=== PATIENT | female | born 1960 | race Hispanic/Latino ===

== ENCOUNTER → 2021-05-14 | Outpatient (CLI) | payer OTHER, MEDICARE | END | disposition home or self-care (01) | LOC: RAH 10:33 | PROVIDERS: ATTEND Internal Medicine Gastroenterology | DX: R13.12 Dysphagia, oropharyngeal phase (principal); R63.30 Feeding difficulties, unspecified | CPT/HCPCS: 74230; 92611 ==

== ENCOUNTER 2021-06-24 12:02 | Emergency (ER) | payer OTHER, MEDICARE ==
[~2021-06-24] VITALS: Ht 157.5 cm; Wt 69.9 kg
[2021-06-24 12:11] VITALS: BP 121/70
[2021-06-24] MEDS ORDERED: MAGIC240 MM (13:44)
[2021-06-24] MEDS ORDERED: DIPH25 PO (13:44)
[2021-06-24] MEDS ORDERED: FAMO20TA8 PO (13:44)
[2021-06-24] MEDS ORDERED: DEXAMETHASONE SOD PHOSPHATE 4 MG/ML 1ML VIAL IM SCH (14:00)
[2021-06-24] MEDS ORDERED: DIPHENHYDRAMINE HCL 25 MG CAPSULE PO ONE (14:00)
[2021-06-24] MEDS ORDERED: LIDOCAINE HCL 2% VISCOUS 15 ML UDCUP PO ONE (14:00)
[2021-06-24] MEDS ORDERED: FAMOTIDINE 20MG TAB PO ONE (14:00)
== END 2021-06-24 14:20 | disposition home or self-care (01) ==
LOC: EDH 12:02
DX: T78.49XA Other allergy, initial encounter (principal); K13.79 Other lesions of oral mucosa; E11.9 Type 2 diabetes mellitus without complications; E78.00 Pure hypercholesterolemia, unspecified; I10 Essential (primary) hypertension; M19.90 Unspecified osteoarthritis, unspecified site; Z79.52 Long term (current) use of systemic steroids; Z79.899 Other long term (current) drug therapy; Z90.49 Acquired absence of other specified parts of digestive tract; X58.XXXA Exposure to other specified factors, initial encounter
CPT/HCPCS: 96372; 99284; J1100; Q0163

== ENCOUNTER → 2021-12-31 | Outpatient (CLI) | payer OTHER, MEDICARE ==
[~2021-12-31] MED LIST: DIPH25 PO; FAMO20TA8 PO; MAGIC240 MM
== END | disposition home or self-care (01) ==
LOC: SHCH 12:57
PROVIDERS: ATTEND Internal Medicine Cardiovascular Disease
DX: I87.2 Venous insufficiency (chronic) (peripheral) (principal)
CPT/HCPCS: 93970

== ENCOUNTER → 2023-01-21 | Outpatient (CLI) | payer OTHER, MEDICARE ==
[~2023-01-21] MED LIST changes: +DIPH-1242 PO; -DIPH25 PO
== END | disposition home or self-care (01) ==
LOC: SHCH 07:38
PROVIDERS: ATTEND Internal Medicine Cardiovascular Disease
DX: I87.2 Venous insufficiency (chronic) (peripheral) (principal); I73.9 Peripheral vascular disease, unspecified
CPT/HCPCS: 93925; 93970

== ENCOUNTER → 2023-05-13 | Outpatient (CLI) | payer OTHER, MEDICARE ==
[~2023-05-13] MED LIST changes: +IOHEXOL-350 75 ML VIAL IV ONE
== END | disposition home or self-care (01) ==
LOC: RAH 10:21
PROVIDERS: ATTEND Surgery
DX: Z48.89 Encounter for other specified surgical aftercare (principal); Z90.49 Acquired absence of other specified parts of digestive tract
CPT/HCPCS: 74177; Q9967

== ENCOUNTER → 2024-01-24 | Outpatient (CLI) | payer OTHER, MEDICARE ==
[~2024-01-24] MED LIST changes: +IOHEXOL 350 MG/ML 100ML INFUS..BTL IV ONE; -IOHEXOL-350 75 ML VIAL IV ONE
== END | disposition home or self-care (01) ==
LOC: RAH 08:12
PROVIDERS: ATTEND Family Medicine
DX: N12 Tubulo-interstitial nephritis, not specified as acute or chronic (principal); S31.109D Unspecified open wound of abdominal wall, unspecified quadrant without penetration into peritoneal cavity, subsequent encounter; K42.9 Umbilical hernia without obstruction or gangrene; I70.90 Unspecified atherosclerosis; M47.815 Spondylosis without myelopathy or radiculopathy, thoracolumbar region; Z90.49 Acquired absence of other specified parts of digestive tract; Z98.890 Other specified postprocedural states; X58.XXXD Exposure to other specified factors, subsequent encounter
CPT/HCPCS: 74177; Q9967

== ENCOUNTER → 2024-07-18 | Outpatient (CLI) | payer OTHER, MEDICARE ==
--- NOTE | 2024-07-18 11:47 | HMCIMG ---
CT ABDOMEN WITH CONTRAST. CT PELVIS WITH CONTRAST INDICATION: Incisional hernia without obstruction or gangrene TECHNIQUE: Routine transaxial images using 5 mm slice thickness were obtained after the intravenous infusion of 100 mL of Omnipaque 350 without adverse effects. Oral contrast was not administered. Rectal contrast was not administered. Coronal and sagittal reformatted images acquired for interpretation. CT was performed with one or more of the following dose reduction techniques: Automated exposure control, adjustment of the mA and/or kV according to patient size, or use of iterative reconstruction technique. COMPARISON: None FINDINGS: ABDOMEN: Heart size is normal. Visible lung bases are clear. The liver is normal in size and smooth in contour without lesions or biliary duct dilation. The spleen is normal in size without lesions. The gallbladder is surgically absent. The pancreas appears normal without pancreatic duct dilation. The adrenal glands appear normal. Both kidneys appear unremarkable. Cortical nephrograms are symmetric and normal in appearance bilaterally. No evidence for intra-abdominal free air or organized fluid collection. No retrocrural, intraabdominal, or retroperitoneal lymphadenopathy identified. No aortic aneurysmal dilation or dissection identified. Right iliac vein stent in place. Severe rectus diastases, without hernia. PELVIS: No evidence for free air or organized pelvic fluid collection. No significant pelvic adenopathy detected. Extensive stool burden. 4.0 cm air and fluid-filled diverticulum arising superiorly off the duodenal sweep. Terminal ileum appears normal. Bowel anastomosis sites appear normal. The uterus and appendix are surgically absent. Multiple pelvic phleboliths. The urinary bladder appears unremarkable. Streak artifact from L4-L5 fusion hardware.. IMPRESSION: 1. Severe rectus diastases, without hernia. 2. Constipation, without evidence for any acute intra-abdominal or pelvic process. 3. 4.0 cm duodenal diverticulum.
== END | disposition home or self-care (01) ==
LOC: RAH 08:17
PROVIDERS: ATTEND Surgery Surgical Oncology
DX: K57.10 Diverticulosis of small intestine without perforation or abscess without bleeding (principal); K59.09 Other constipation; K43.2 Incisional hernia without obstruction or gangrene; I87.8 Other specified disorders of veins; M62.08 Separation of muscle (nontraumatic), other site; Z90.49 Acquired absence of other specified parts of digestive tract; Z90.710 Acquired absence of both cervix and uterus
CPT/HCPCS: 74177; Q9967